=== PATIENT | female | born 1960 | race Hispanic/Latino ===

== ENCOUNTER → 2019-01-11 | Outpatient (CLI) | payer MEDICARE ==
[~2019-01-11] MED LIST: ACET-66 PO; BACL10TA PO; DIPH25CA85 PO; ESOM40CA PO; FLUT9.9S16 NS; LIRA0.6P SQ; MECL12.585 PO; MELA1TAB28 PO; METF-527 PO; METO-391 PO; SPIR25TA6 PO; TRAM50TA4 PO; VENL150C2 PO; VITA150T PO
== END | disposition home or self-care (01) ==
LOC: RAH 11:06
PROVIDERS: ATTEND Internal Medicine
DX: Z12.31 Encounter for screening mammogram for malignant neoplasm of breast (principal)
CPT/HCPCS: 77067